=== PATIENT | female | born 1985 | race Native Hawaiian/Other Pacific Islander ===

== ENCOUNTER 2017-11-25 21:42 | Emergency (ER) | payer OTHER ==
[2017-11-25 22:41] VITALS: BP 131/88; PULSE 89; RESP 16; TEMP 98.9; O2SAT 100
--- NOTE | 2017-11-25 23:00 | ED PDOC ---
Upper Extremity Pain/Injury Time Seen by Provider: 11/25/17 22:58 Chief Complaint (Nursing): Finger,Hand,&Wrist Chief Complaint (Provider): hand injury History Per: Patient (32 y/o female here for evaluation of left hand injury that occurred after trip and fall. Patient states she broke fall with hand. Denies any head injury/LOC. IS right hand dominant.) Past Medical History Reviewed: Historical Data, Nursing Documentation, Vital Signs Vital Signs: Last Vital Signs Temp 98.9 F 11/25/17 22:38 Pulse 89 11/25/17 22:38 Resp 16 11/25/17 22:38 BP 131/88 11/25/17 22:38 Pulse Ox 100 11/25/17 22:38 - Surgical History Surgical History: Cholecystectomy - Family History Family History: States: No Known Family Hx - Home Medications Home Medications: Ambulatory Orders Medication Instructions Recorded Naproxen 1 tab PO Q12 PRN #14 tab 11/26/17 - Allergies Allergies/Adverse Reactions: Allergies Allergy/AdvReac Type Severity Reaction Status Date / Time No Known Allergies Allergy Verified 11/25/17 22:37 Review of Systems ROS Statement: Except As Marked, All Systems Reviewed And Found Negative Physical Exam - Reviewed Nursing Documentation Reviewed: Yes Vital Signs Reviewed: Yes - Physical Exam Appears: Positive for: Well, Non-toxic, No Acute Distress Head Exam: Positive for: ATRAUMATIC, NORMAL INSPECTION, NORMOCEPHALIC Skin: Positive for: Normal Color, Warm, DRY Eye Exam: Positive for: EOMI, Normal appearance, PERRL ENT: Positive for: Normal ENT Inspection Neck: Positive for: Normal, Painless ROM Cardiovascular/Chest: Positive for: Regular Rate, Rhythm Respiratory: Positive for: CNT, Normal Breath Sounds Gastrointestinal/Abdominal: Positive for: Normal Exam, Bowel Sounds, Soft Back: Positive for: Normal Inspection Extremity: Positive for: Normal ROM, Tenderness (tenderness left hand by base of fifth digiti/swelling noted.) Neurologic/Psych: Positive for: Alert, Oriented - ECG O2 Sat by Pulse Oximetry: 100 - Progress ED Course And Treament: Hand xry: no acute fx tylenol 975mg Disposition - Clinical Impression Clinical Impression: Hand contusion - Patient ED Disposition Is Patient to be Admitted: No - Disposition Referrals: FAMILY PROVIDER,NO [Primary Care Provider] - Elvis Agee MD [Medical Doctor] - Disposition: Routine/Home Disposition Time: 00:07 Condition: FAIR Prescriptions: Naproxen 1 tab PO Q12 PRN #14 tab PRN Reason: Pain, Moderate (4-7) Instructions: Contusion in Adults (DC) Forms: [facility] (Bhutanese), [facility] ED School/Work Excuse
--- NOTE | 2017-11-26 11:28 | RAD ---
PROCEDURE: Left Hand Radiographs. HISTORY: hand injury COMPARISON: None. FINDINGS: BONES: Cortical irregularity base of the 4th metacarpal diaphysis. Cannot rule out fracture although this may be artifact. . Additional radiographic evaluation is advised if clinically warranted. . JOINTS: Normal. No osteoarthritic changes. SOFT TISSUES: Normal. OTHER FINDINGS: None. IMPRESSION: Cortical irregularity base of the 4th metacarpal diaphysis. Please correlate clinically for possible fracture. Consider additional radiographic evaluation if warranted.
== END 2017-11-26 00:13 | disposition home or self-care (01) ==
LOC: H.ER 21:42
DX: S60.222A Contusion of left hand, initial encounter (principal); W19.XXXA Unspecified fall, initial encounter; Y92.89 Other specified places as the place of occurrence of the external cause

== ENCOUNTER 2017-11-26 18:01 | Emergency (ER) | payer OTHER ==
[2017-11-26 18:25] VITALS: BP 119/74; PULSE 91; RESP 18; TEMP 98.7; O2SAT 99
--- NOTE | 2017-11-26 20:46 | ED PDOC ---
Upper Extremity Pain/Injury Chief Complaint (Nursing): Upper Extremity Problem/Injury Chief Complaint (Provider): Fracture to right Hand History/Exam Limitations: no limitations Current Symptoms Are (Timing): Still Present Additional Complaint(s): 32 year old female who was asked to return to the ED after a fracture was noted on her Xray. Patient tripped and fell onto right hand causing injury. FAMILY PROVIDER,NO Past Medical History Reviewed: Historical Data, Nursing Documentation, Vital Signs Vital Signs: Last Vital Signs Temp 98.7 F 11/26/17 18:23 Pulse 91 H 11/26/17 18:23 Resp 18 11/26/17 18:23 BP 119/74 11/26/17 18:23 Pulse Ox 99 11/26/17 18:23 - Medical History PMH: No Chronic Diseases - Surgical History Surgical History: Cholecystectomy - Family History Family History: States: Unknown Family Hx - Social History Current smoker - smoking cessation education provided: Yes (Current Some Days Smoker) Ex-Smoker (has not smoked in the last 12 months): Yes Alcohol: None Drugs: Denies - Home Medications Home Medications: Ambulatory Orders Medication Instructions Recorded Naproxen 1 tab PO Q12 PRN #14 tab 11/26/17 oxyCODONE/Acetaminophen [Percocet 1 ea PO Q6 PRN #15 tab 11/26/17 5/325 mg Tab] - Allergies Allergies/Adverse Reactions: Allergies Allergy/AdvReac Type Severity Reaction Status Date / Time No Known Allergies Allergy Verified 11/25/17 22:37 Review of Systems Musculoskeletal: Positive for: Hand Pain, Other (Fracture to right hand) Physical Exam - Reviewed Nursing Documentation Reviewed: Yes Vital Signs Reviewed: Yes - Physical Exam Appears: Positive for: Non-toxic, No Acute Distress Skin: Positive for: Normal Color, Warm, Dry. Negative for: Rash Eye Exam: Positive for: Normal appearance, EOMI, PERRL Extremity: Positive for: Normal ROM (Pain to lateral aspect of hand). Negative for: Tenderness, Deformity, Swelling Neurologic/Psych: Positive for: Alert, Oriented - ECG O2 Sat by Pulse Oximetry: 99 (RA) Pulse Ox Interpretation: Normal Medical Decision Making Medical Decision Making: Initial Impression 32 y/o female presenting wit h fracture to gordon andrea cadena Initial Plan: * Reevaluation Ulnar Gutter splint placed in the ED. Documented by Gladis Berg acting as a scribe for Robe Irwin PA-C. All medical record entries made by the Scribe were at my direction and personally dictated by me. I have reviewed the chart and agree that the record accurately reflects my personal performance of the history, physical exam, medical decision making, and the department course for this patient. I have also personally directed, reviewed, and agree with the discharge instructions and disposition. Disposition - Clinical Impression Clinical Impression: Fracture of fourth metacarpal bone - Disposition Referrals: Elvis Agee MD [Medical Doctor] - Disposition: Routine/Home Disposition Time: 20:13 Condition: FAIR Prescriptions: oxyCODONE/Acetaminophen [Percocet 5/325 mg Tab] 1 ea PO Q6 PRN #15 tab PRN Reason: Pain, Severe (8-10) Instructions: Hand Fracture (ED) Forms: [facility] (Nepali), [facility] ED School/Work Excuse
== END 2017-11-26 20:48 | disposition home or self-care (01) ==
LOC: H.ER 18:01
DX: S62.344A Nondisplaced fracture of base of fourth metacarpal bone, right hand, initial encounter for closed fracture (principal); Y92.89 Other specified places as the place of occurrence of the external cause

== ENCOUNTER 2017-11-28 10:28 | Emergency (ER) | payer OTHER ==
[2017-11-28 10:46] VITALS: BP 129/86; PULSE 73; RESP 18; TEMP 98.3; O2SAT 99
[2017-11-28] MEDS ORDERED: Oxycodone/Acetaminophen 5/325 mg Tab PO ONE (11:54)
[2017-11-28] MEDS ORDERED: Oxycodone/Acetaminophen 5/325 mg Tab ONE (12:54)
--- NOTE | 2017-11-28 14:28 | ED PDOC ---
Upper Extremity Pain/Injury Time Seen by Provider: 11/28/17 11:37 Chief Complaint (Nursing): Upper Extremity Problem/Injury Chief Complaint (Provider): Upper extremity problem/injury History Per: Patient History/Exam Limitations: no limitations Onset/Duration Of Symptoms: Days (x2) Current Symptoms Are (Timing): Still Present Quality: "Pain" Additional Complaint(s): Nuno Carey is a 32 year old female, with no significant past medical history, who presents to the emergency department complaining of left hand and arm pain with swelling onset for x2 days. Patient reports this will be her 3rd visit in the ER. The first visit was on Nov 25 after she fell on left hand and sustained an injury, she was diagnosed with hand contusion and sent home. X- Ray was read for possible fracture on 4th metacarpal bone, patient was called back x2 days ago, an ulnar gutter splint was placed and she was given prescription for percocet and advised to follow up with Dr. Leal, orthopedist. Patient was unable to make an appointment due to codie care, and did not filled her prescriptions. Patient reports a worsening hand pain after ulnar gutter splint was placed. She denies any fever, chills or other medical complaints. PMD: None provided. Past Medical History Reviewed: Historical Data, Nursing Documentation, Vital Signs Vital Signs: Last Vital Signs Temp 98.3 F 11/28/17 10:42 Pulse 73 11/28/17 10:42 Resp 18 11/28/17 10:42 BP 129/86 11/28/17 10:42 Pulse Ox 99 11/28/17 10:42 - Medical History PMH: No Chronic Diseases - Surgical History Surgical History: Cholecystectomy - Family History Family History: States: Unknown Family Hx - Social History Current smoker - smoking cessation education provided: Yes (Current some days smoker) Alcohol: None Drugs: Denies - Home Medications Home Medications: Ambulatory Orders Medication Instructions Recorded Naproxen 1 tab PO Q12 PRN #14 tab 11/26/17 oxyCODONE/Acetaminophen [Percocet 1 ea PO Q6 PRN #15 tab 11/26/17 5/325 mg Tab] - Allergies Allergies/Adverse Reactions: Allergies Allergy/AdvReac Type Severity Reaction Status Date / Time No Known Allergies Allergy Verified 11/28/17 10:42 Review of Systems ROS Statement: Except As Marked, All Systems Reviewed And Found Negative Constitutional: Negative for: Fever, Chills Musculoskeletal: Positive for: Arm Pain (left ), Hand Pain (left) Physical Exam - Reviewed Nursing Documentation Reviewed: Yes Vital Signs Reviewed: Yes - Physical Exam Appears: Positive for: Non-toxic Head Exam: Positive for: ATRAUMATIC, NORMAL INSPECTION, NORMOCEPHALIC Skin: Positive for: Normal Color, Warm, Dry Eye Exam: Positive for: Normal appearance Neck: Positive for: Painless ROM Extremity: Positive for: Capillary Refill (left hand normal <2 seconds), Swelling (mild swelling of her 1st, 2nd, and 3rd fingers but no 4th, and 5th. ) . Negative for: Tenderness (The entire hand is soft, nontender, normal color), Deformity (hand) Neurologic/Psych: Positive for: Alert, Oriented. Negative for: Motor/Sensory Deficits - ECG O2 Sat by Pulse Oximetry: 99 (RA) Pulse Ox Interpretation: Normal Medical Decision Making Medical Decision Making: Initial Impression: 4th metacarpal fracture related pain. Initial Plan: --Fracture is non-displaced. Removed the gutter and pain exacerbation is most likely due to splint tightness. Will redo the ulnar gutter splint and pt will be directed to media monitor visit. 11/26/17 Hand X-Ray FINDINGS: BONES: Cortical irregularity base of the 4th metacarpal diaphysis. Cannot rule out fracture although this may be artifact. . Additional radiographic evaluation is advised if clinically warranted. . JOINTS: Normal. No osteoarthritic changes. SOFT TISSUES: Normal. OTHER FINDINGS: None. IMPRESSION: Cortical irregularity base of the 4th metacarpal diaphysis. Please correlate clinically for possible fracture. Consider additional radiographic evaluation if warranted. 12:51 --Splint properly done by electrical equipment technician Vini. --On reevaluation, neurovascularly intact post splint Scribe Attestation: Documented by David Bernard, acting as a scribe for Frank Hoyos MD Provider Scribe Attestation: All medical record entries made by the Scribe were at my direction and personally dictated by me. I have reviewed the chart and agree that the record accurately reflects my personal performance of the history, physical exam, medical decision making, and the department course for this patient. I have also personally directed, reviewed, and agree with the discharge instructions and disposition. Disposition - Clinical Impression Clinical Impression: Fracture of hand, Closed fracture of hand - Disposition Referrals: Elvis Agee MD [Medical Doctor] - Condition: GOOD Additional Instructions: You will be called in 2-3 days for referral. Follow up with hand specialist within 1 week. Instructions: Finger Fracture (ED) Forms: [facility] (Haitian)
== END 2017-11-28 14:07 | disposition home or self-care (01) ==
LOC: H.ER 10:28
DX: Z47.89 Encounter for other orthopedic aftercare (principal)

== ENCOUNTER 2018-01-20 13:02 | Emergency (ER) | payer SELFPAY ==
[2018-01-20 13:34] VITALS: BP 146/87; PULSE 86; RESP 16; TEMP 98.8; O2SAT 99
--- NOTE | 2018-01-20 14:06 | ED PDOC ---
HPI: General Adult Time Seen by Provider: 01/20/18 13:57 Chief Complaint (Nursing): Female Genitourinary Chief Complaint (Provider): "I want to see how far along I am" History Per: Patient History/Exam Limitations: no limitations Onset/Duration Of Symptoms: Days Have you had recent travel within the past 21 days to any of the following countries: [place], [place], [place] or [place]?: No Current Symptoms Are (Timing): Still Present Additional Complaint(s): LMP 12/04/2017 Pt states she took 2 tests at home that were positive. Pt states that does not know how far along her is. Pt states she has not seen and POT ROOM TAPPER in many years. Pt states she is taking prenatals. PT states she is feeling nauseous. Pt states she felt some cramping 6 days ago. Denies any current complaints. Past Medical History Reviewed: Historical Data, Nursing Documentation, Vital Signs Vital Signs: Last Vital Signs Temp 98.8 F 01/20/18 13:30 Pulse 86 01/20/18 13:30 Resp 16 01/20/18 13:30 BP 146/87 01/20/18 13:30 Pulse Ox 99 01/20/18 14:11 - Medical History PMH: No Chronic Diseases - Surgical History Surgical History: Cholecystectomy - Family History Family History: States: Unknown Family Hx - Living Arrangements Living Arrangements: With Family - Social History Current smoker - smoking cessation education provided: No - Home Medications Home Medications: Ambulatory Orders Medication Instructions Recorded Naproxen 1 tab PO Q12 PRN #14 tab 11/26/17 oxyCODONE/Acetaminophen [Percocet 1 ea PO Q6 PRN #15 tab 11/26/17 5/325 mg Tab] Doxylamine/Pyridoxine HCl (B6) 1 each PO QPM #30 tablet. 01/20/18 [Diclevandana Castrejon 10-10 mg Tablet] Nitrofurantoin Macrocrystals 100 mg PO BID #10 cap 01/20/18 [Macrobid] - Allergies Allergies/Adverse Reactions: Allergies Allergy/AdvReac Type Severity Reaction Status Date / Time No Known Allergies Allergy Verified 11/28/17 10:42 Review of Systems ROS Statement: Except As Marked, All Systems Reviewed And Found Negative Constitutional: Negative for: Fever, Chills Gastrointestinal: Positive for: Nausea. Negative for: Abdominal Pain Genitourinary Female: Negative for: Vaginal Bleeding, Pelvic Pain Physical Exam - Reviewed Nursing Documentation Reviewed: Yes Vital Signs Reviewed: Yes - Physical Exam Appears: Positive for: Well, Non-toxic, No Acute Distress Head Exam: Positive for: ATRAUMATIC, NORMAL INSPECTION, NORMOCEPHALIC Skin: Positive for: Normal Color, Warm, DRY Eye Exam: Positive for: Normal appearance ENT: Positive for: Normal ENT Inspection Neck: Positive for: Normal, Painless ROM Cardiovascular/Chest: Positive for: Regular Rate, Rhythm Respiratory: Positive for: CNT, Normal Breath Sounds Gastrointestinal/Abdominal: Positive for: Normal Exam, Soft. Negative for: Tenderness Back: Positive for: Normal Inspection Extremity: Positive for: Normal ROM Neurologic/Psych: Positive for: Alert, Oriented - ECG O2 Sat by Pulse Oximetry: 99 Medical Decision Making Medical Decision Making: (+) leuks Disposition - Clinical Impression Clinical Impression: UTI in , Nausea - Patient ED Disposition Is Patient to be Admitted: No Counseled Patient/Family Regarding: Diagnosis, Need For Followup, Rx Given - Disposition Referrals: Niels Carrillo DO [Staff Provider] - [facility]] Disposition: Routine/Home Disposition Time: 15:00 Condition: GOOD Prescriptions: Doxylamine/Pyridoxine HCl (B6) [Oh Castrejon 10-10 mg Tablet] 1 each PO QPM #30 tablet. Nitrofurantoin Macrocrystals [Macrobid] 100 mg PO BID #10 cap Instructions: Urinary Tract Infection, Adult (DC) Forms: [facility] (Lao)
[2018-01-20 14:51] LABS: SQUAMOUS EPITHIAL 2 /hpf (0-5); URINE AMORPHOUS SEDIMENT RARE /ul (<OCC); URINE BILIRUBIN NEGATIVE (NEGATIVE); URINE BLOOD NEGATIVE (NEGATIVE); URINE CLARITY SLIGHTY-CLOUDY (Clear); URINE COLOR YELLOW (YELLOW); URINE GLUCOSE (UA) NEG (Normal); URINE LEUKOCYTE ESTERASE TRACE Leu/uL (Negative); URINE PROTEIN NEGATIVE (NEGATIVE); URINE UROBILINOGEN 0.2-1.0 mg/dL (0.2-1.0)
== END 2018-01-20 15:13 | disposition home or self-care (01) ==
LOC: H.ER 13:02
DX: O23.40 Unspecified infection of urinary tract in pregnancy, unspecified trimester (principal)

== ENCOUNTER 2018-02-11 08:31 | Emergency (ER) | payer SELFPAY ==
[2018-02-11 08:36] VITALS: BMI 39.2
[2018-02-11] MEDS ORDERED: Sodium Chloride 0.9% 1,000 ML IV STA (08:51)
--- NOTE | 2018-02-11 08:53 | ED PDOC ---
HPI: Female Pain Time Seen by Provider: 02/11/18 08:43 Chief Complaint (Nursing): Female Genitourinary Chief Complaint (Provider): Vaginal bleeding History Per: Patient History/Exam Limitations: no limitations Onset/Duration Of Symptoms: Days (today) Additional Complaint(s): Pt. with spotting that started today. Mild pelvic cramping. No back pain, dyspnea, chest pain, fever, cough, dysuria. Is 9 wks preg. Past Medical History Reviewed: Nursing Documentation, Vital Signs Vital Signs: Last Vital Signs Temp 98.3 F 02/11/18 08:36 Pulse 75 02/11/18 08:36 Resp 17 02/11/18 08:36 BP 146/90 02/11/18 08:36 Pulse Ox 99 02/11/18 08:36 - Medical History PMH: No Chronic Diseases - Surgical History Surgical History: Cholecystectomy - Family History Family History: States: Unknown Family Hx - Home Medications Home Medications: Ambulatory Orders Medication Instructions Recorded Naproxen 1 tab PO Q12 PRN #14 tab 11/26/17 oxyCODONE/Acetaminophen [Percocet 1 ea PO Q6 PRN #15 tab 11/26/17 5/325 mg Tab] Doxylamine/Pyridoxine HCl (B6) 1 each PO QPM #30 tablet. 01/20/18 [Oh Castrejon 10-10 mg Tablet] Nitrofurantoin Macrocrystals 100 mg PO BID #10 cap 01/20/18 [Macrobid] - Allergies Allergies/Adverse Reactions: Allergies Allergy/AdvReac Type Severity Reaction Status Date / Time No Known Allergies Allergy Verified 11/28/17 10:42 Review of Systems ROS Statement: Except As Marked, All Systems Reviewed And Found Negative Genitourinary Female: Positive for: Vaginal Bleeding, Pelvic Pain Physical Exam - Reviewed Nursing Documentation Reviewed: Yes Vital Signs Reviewed: Yes - Physical Exam Appears: Positive for: Non-toxic, No Acute Distress Head Exam: Positive for: ATRAUMATIC, NORMAL INSPECTION, NORMOCEPHALIC Skin: Positive for: Normal Color, Warm, DRY Eye Exam: Positive for: EOMI, Normal appearance, PERRL ENT: Positive for: Normal ENT Inspection Neck: Positive for: Normal, Painless ROM Cardiovascular/Chest: Positive for: Regular Rate, Rhythm Respiratory: Positive for: CNT, Normal Breath Sounds Gastrointestinal/Abdominal: Positive for: Normal Exam, Soft. Negative for: Tenderness Back: Positive for: Normal Inspection. Negative for: L CVA Tenderness, R CVA Tenderness Extremity: Positive for: Normal ROM Neurologic/Psych: Positive for: Alert, Oriented - Laboratory Results Result Diagrams: 02/11/18 08:53 02/11/18 08:53 - ECG O2 Sat by Pulse Oximetry: 99 - Progress ED Course And Treament: 1224: SLIUP. Fu with obgyn. Abdon barker. Pain free. AAOx3. Disposition - Clinical Impression Clinical Impression: Threatened - Patient ED Disposition Is Patient to be Admitted: No Counseled Patient/Family Regarding: Studies Performed, Diagnosis, Need For Followup - Disposition [facility] - [facility]/18 Disposition: Routine/Home Disposition Time: 12:25 Condition: STABLE Additional Instructions: Return if not better in 3 days. Instructions: Threatened Miscarriage Forms: [facility] (Syriac), [facility] ED School/Work Excuse
[2018-02-11 09:12] LABS: BASO % 0.5 % (0.0-2.0); EOS # 0.1 K/uL (0.0-0.7); EOS % 0.9 % (0.0-4.0); HEMOGLOBIN 13.8 g/dL (12.0-16.0); LYMPH # 1.8 K/uL (1.0-4.3); MEAN CELL VOLUME 93.1 fl (81.0-99.0); MEAN CORPUSCULAR HGB CONC 34.4 g/dL (33.0-37.0); MEAN PLATELET VOLUME 9.6 fl (7.2-11.7); MONO # 0.6 K/uL (0.0-0.8); MONO % 7.1 % (0.0-10.0); NEUT # 6.5 K/uL (1.8-7.0); NEUT % 71.5 % (50.0-75.0); NRBC % 0.1 % (0.0-0.0); RBC 4.31 Mil/uL (3.80-5.20); RED CELL DISTRIBUTION WIDTH 13.6 % (11.5-14.5); WHITE BLOOD COUNT 9.1 K/uL (4.8-10.8)
[2018-02-11 09:25] LABS: CALCIUM 9.5 mg/dL (8.4-10.2); GFR AFRICAN-AMERICAN > 60; GFR NON-AFRICAN AMERICAN > 60
[2018-02-11 09:26] LABS: ALB/GLOB RATIO 1.1 (1.0-2.1); ALBUMIN 4.1 g/dL (3.5-5.0); ALT/SGPT 26 U/L (9-52); AST/SGOT 50 U/L (14-36); BLOOD UREA NITROGEN 10 mg/dl (7-17)
--- NOTE | 2018-02-11 10:29 | US ---
PROCEDURE: OB Pelvic Ultrasound HISTORY: preg and pain COMPARISON: None available. TECHNIQUE: Transvaginal pelvic ultrasound was performed. FINDINGS: UTERUS: Single Live intrauterine gestation. CRL measures 1.61 cm equivalent to 8 weeks and 0 day gestatioin Gestational sac diameter measures 3.22 cm equivalent to 8 weeks and 2 days gestation age (Ultrasound estimated): Date of delivery (Ultrasound estimated) : 09/22/2018 Heart rate: 164 bpm. Ginger-gestational hemorrhage: None. Uterus .8 x 5.7 x 6.4 cm. Normal in size and appearance. No fibroid or other mass lesion seen. CERVIX: Long and closed. No cervical abnormality seen. RIGHT OVARY: Measures 3.7 x 1.4 x 4.1 cm. No mass. Normal flow. LEFT OVARY: Measures 2.3 x 2.0 x 1.3 cm. No mass. Normal flow. FREE FLUID: None. OTHER FINDINGS: None. IMPRESSION: Single live intrauterine gestation with mean gestational age of 8 weeks and 2 days. Estimated date of delivery by ultrasound is 09/22/2018.
[2018-02-11 13:05] VITALS: BP 128/78; PULSE 80; RESP 20; TEMP 97; O2SAT 98
== END 2018-02-11 13:05 | disposition home or self-care (01) ==
LOC: H.ER 08:31
DX: O20.0 Threatened abortion (principal); Z3A.09 9 weeks gestation of pregnancy
CPT/HCPCS: 76817; 80053; 81025; 84702; 85025; 86850; 86900; 99282; J7040

== ENCOUNTER 2018-09-01 22:09 | Emergency (ER) | payer SELFPAY ==
[2018-07-23 17:30] VITALS: BMI 39.2
--- NOTE | 2018-09-01 23:07 | OBHP ---
Datetime: 09/01/2018 23:02 IP Adm Impression: Term, intrauterine ; No Active Labor IP Admit Plan: Observation/Evaluation; Discharge home Admit Comment, IP Provider: Patient is a 33-year-old 2 para 1 estimated due date 09/23/2018 estimated gestational age 36 weeks and 6/7 days patient presents to labor and delivery complaining of uterine contractions vaginal discharge. Patient reports good movement no vaginal bleeding no l eakage of fluid. Patient denies any problems dry her . Past medical history none Medications vitamins Past surgical history gallbladder removed No known drug allergies Social history denies alcohol tobacco use Review of systems patient denies headache chest pain shortness of breath palpitations nausea vomit ing diarrhea heat or cold intolerance easy bruisability musculoskeletal or neurological complaints Vital signs stable afebrile Physical exam see notes Intrauterine at 36+ weeks Uterine contractions cervical exam unchanged from off extended exam 1 week ago External monitor Observation Probable discharge home with labor precautions Pelvic Type - PN: Adequate Extremities - PN: Normal Abdomen - PN: Normal Back - PN: Normal Breast - PN: Normal Lungs - PN: Normal Heart - PN: Normal Thyroid - PN: Normal Neurologic - PN: Normal HEENT - PN: Normal General - PN: Normal Weight - Estimated: 7 Presentation-Admit: Vertex FHR - Baseline A Provider: 145 Membranes, Provider: Intact Gestation - Est Wks by US: 366/7 Pool Provider: Negative Vital Signs Provider: Reviewed IP Chief Complaint: Uterine contractions NICHD Variability Prov Fetus A: Moderate 6-25bpm NICHD Accel Fetus A IP Provider: 15X15 FHR Category Provider Fetus A: Category I NICHD Decel Fetus A IP Provider: None Dilatation, Provider: 2 Effacement, Provider: 50 Station, Provider: -2 Genitourinary Exam: Normal DTRs - PN: Normal
[2018-09-02 04:12] VITALS: BP 137/83; PULSE 83; TEMP 98.6
== END 2018-09-01 23:27 | disposition home or self-care (01) ==
LOC: H.EROB2 22:09
DX: O26.93 Pregnancy related conditions, unspecified, third trimester (principal); R10.2 Pelvic and perineal pain; Z3A.36 36 weeks gestation of pregnancy

== ENCOUNTER 2018-09-09 13:24 | Emergency (ER) | payer SELFPAY ==
[2018-09-09 14:09] VITALS: BMI 38.5
[2018-09-09 14:42] LABS: SQUAMOUS EPITHIAL 16 /hpf (0-5); URINE BACTERIA RARE (<OCC); URINE BILIRUBIN NEGATIVE (NEGATIVE); URINE CLARITY CLOUDY (Clear); URINE COLOR YELLOW (YELLOW); URINE GLUCOSE (UA) NEG (Normal); URINE LEUKOCYTE ESTERASE LARGE Leu/uL (Negative); URINE PROTEIN NEGATIVE (NEGATIVE); URINE UROBILINOGEN 0.2-1.0 mg/dL (0.2-1.0)
[2018-09-09 14:45] LABS: URINE BLOOD SMALL (NEGATIVE)
--- NOTE | 2018-09-11 07:26 | OBHP ---
Datetime: 09/09/2018 14:14 IP Adm Impression: Term, intrauterine ; No Active Labor IP Admit Plan: Observation/Evaluation; Discharge home Admit Comment, IP Provider: Patient is a 33-year-old, , GA: 38, OVIDIO 09/23/2018, presents to labo r and delivery complaining of uterine contractions vaginal discharge. Patient reports good move ment no vaginal bleeding no leakage of fluid. Patient denies any problems dry her . Past medical history none Medications vitamins Past surgical history gallbladder removed No known drug allergies Social history denies alcohol tobacco use Review of systems patient denies headache chest pain shortness of breath palpitations nausea vomit ing diarrhea heat or cold intolerance easy bruisability musculoskeletal or neurological complaints Vital signs stable afebrile Physical exam see notes A/P: 33-year-old, , GA: 38, OVIDIO 09/23/2018, here for CTX Uterine contractions cervical exam unchanged from off extended exam 1 week ago External monitor Observation Reexamination -Case discussed with Dr. Sotelo --- Dr. Tatum, PGY-II Reexam after 1.5hours Exam: Cervix 3cm, 50%, -2 Urine: + Leuk START macrobid Case discussed and patient examined with Dr. Sotelo --Dr. Irwin, PGY-II Patient examined 1.5 hours after Exam no change improved pain patient agrees with discharge plan Macrobid 100 BID for 5 days, Rx given follow up to the clinic tommorrow ER precatuions discussed -Case discussed with Dr. Sotelo --- Dr. Irwin, PGY-II. Attending Note: Patient was seen and examined with the resident and I agree with the above assessm ent. Pelvic Type - PN: Adequate Extremities - PN: Normal Abdomen - PN: Normal Back - PN: Normal Breast - PN: Normal Lungs - PN: Normal Heart - PN: Normal Thyroid - PN: Normal Neurologic - PN: Normal HEENT - PN: Normal General - PN: Normal FHR - Baseline A Provider: 130 EGA AdmitDate IP: 38.0 Vital Signs Provider: Reviewed IP Chief Complaint: Uterine contractions; Maternal discomfort NICHD Variability Prov Fetus A: Moderate 6-25bpm NICHD Accel Fetus A IP Provider: 15X15 NICHD Decel Fetus A IP Provider: None Dilatation, Provider: 2 Effacement, Provider: 50 Station, Provider: -2 Genitourinary Exam: Normal DTRs - PN: Normal (Annotations: Data stored by CPN on behalf of user)
[2018-09-11 11:24] VITALS: BP 123/81; PULSE 80; RESP 18; TEMP 97.9; O2SAT 100
== END 2018-09-09 16:45 | disposition home or self-care (01) ==
LOC: H.EROB2 13:24
DX: O26.93 Pregnancy related conditions, unspecified, third trimester (principal); R10.2 Pelvic and perineal pain; Z3A.38 38 weeks gestation of pregnancy

== ENCOUNTER 2018-09-25 09:27 | Inpatient (IN) | payer MEDICAID, SELFPAY ==
[2018-09-25 09:40] VITALS: BMI 39.9
[2018-09-25] MEDS ORDERED: Oxytocin 30 UNIT 30 UNITS/500 ML BAG IV ONE (10:23)
[2018-09-25] MEDS ORDERED: Lactated Ringer's 1,000 ML IV SCH ×2 (10:30→18:30)
[2018-09-25] MEDS ORDERED: OXYTOCIN/0.9 % NS 20 UNIT/1,000 ML BAG IV SCH (10:30)
[2018-09-25] MEDS ORDERED: Oxytocin 30 units/LR 500ML 30 UNITS/500 ML BAG IV ONE ×2 (10:38→10:39)
[2018-09-25] MEDS: Lactated Ringer's 1,000 ML IV ONE ×2 (12:30→13:45)
[2018-09-25 12:45] LABS: BASO % 0.3 % (0.0-2.0); EOS % 0.6 % (0.0-4.0); LYMPH # 1.2 K/uL (1.0-4.3); LYMPH % 17.7 % (20.0-40.0); MEAN CELL VOLUME 97.2 fl (81.0-99.0); MEAN CORPUSCULAR HEMOGLOBIN 31.9 pg (27.0-31.0); MEAN CORPUSCULAR HGB CONC 32.8 g/dL (33.0-37.0); MEAN PLATELET VOLUME 9.1 fl (7.2-11.7); MONO # 0.3 K/uL (0.0-0.8); MONO % 4.6 % (0.0-10.0); NEUT # 5.4 K/uL (1.8-7.0); NEUT % 76.8 % (50.0-75.0); NRBC % 0.1 % (0.0-0.0); RBC 3.77 Mil/uL (3.80-5.20); RED CELL DISTRIBUTION WIDTH 15.5 % (11.5-14.5)
--- NOTE | 2018-09-25 14:37 | OBADHP ---
Datetime: 09/25/2018 10:31 IP Chief Complaint Other: oligohydromnios Pelvic Type - PN: Adequate Extremities - PN: Normal Abdomen - PN: Normal Back - PN: Normal Breast - PN: Not Done Lungs - PN: Normal Heart - PN: Normal Thyroid - PN: Normal Neurologic - PN: Normal HEENT - PN: Normal General - PN: Normal FHR - Baseline A Provider: 150 Gestation - Est Wks by US: 39.4 Pool Provider: Negative Nitrazine Provider: Negative Ferning Provider: Negative IP Chief Complaint: Other Effacement, Provider: 50 Station, Provider: -2 Genitourinary Exam: Normal DTRs - PN: Normal EGA AdmitDate IP: 39.4 IP Admit Plan: Admit to unit; Initiate labor induction protocol Datetime: 09/25/2018 10:09 Admit Comment, IP Provider: Pt is a 39.4 wk was sent from Clinic due to + for Oligohydromnios. Pt have no other complain she denies contraction, vaginal bleed, water gush or any other symptoms of labor. Pt does complain of mild headache and some nausea that she had today in morning otherwise she franco es fever chills, vomiting, confusion dizzyness, chest pain, sob, abd pain diarrhea, constipation dysu jayant, polyuria. ROS : all negative except mentioned in HPI Allergy none PCP: [facility] Med: [facility] PMH: none PSH cholesystectomy OBGYN: 1 NVD, no STD no complication in past PFH: non contribuitary SOcial used to smoke in past stopped 3 mo before Assessment and plan Pt is a 39.4 wk was sent from Clinic due to + for Oligohydromnios. Will be admitted for admis patrice Pt is with no acute distress. PE cervix 3 cm 50% -2 Murray score 5 Plan Will admit to floor for Induction of labor Tim Rao PGY1 OB Hospitalist on-call. With PGY1, I saw and examined this patinet. Early labor. Explained condi ton, labor, pain managment, augmentation, delivey and care. She wants to eat and then augm ent labor MAHNDO Presentation-Admit: Vertex Comments, ACOG Physical Exam: Pt is not in acute distress heart s1 s2 heard no extra heart sound lung clear abd BS+ non tender Pelvic 3cm 50% -2 IP Hx Assessment: The History has been Reviewed and is Current Vital Signs Provider: Reviewed; Within Normal Limits NICHD Variability Prov Fetus A: Moderate 6-25bpm NICHD Accel Fetus A IP Provider: [id number] FHR Category Provider Fetus A: Category I Dilatation, Provider: 3 IP Adm Impression: Term, intrauterine ; No Active Labor; Intact Membranes Datetime: 09/09/2018 14:14 NICHD Decel Fetus A IP Provider: None Datetime: 09/01/2018 23:02 Weight - Estimated: 7 Membranes, Provider: Intact
[2018-09-25] MEDS ORDERED: Fentanyl/Bupivacaine HCl 250 ML EPI ONE (18:26)
--- NOTE | 2018-09-25 20:02 | OBPN ---
Datetime: 09/25/2018 19:55 IP Progress Impression: Normal progression of labor; Reassuring heart rate IP Informed Consent Obtain: Vaginal Delivery; Risks, Benefits and Alternatives Discussed IP Progress Plan: Augmentation; Anticipate Vaginal Delivery Pool Provider: Negative Membranes, Provider: Intact Contraction Comments Provider: 2-4m FHR - Baseline A Provider: 150 IP Fetus A Comments: one variable decel noted Presentation-Admit: Vertex IP Progress Note Comment: Notified that shewas 4-5cm at 19:00pm. She had rec'd epidural for pain man agement Latent phase of labor PLAN: Continue Pitocin augmentation - currently at 2miu/h NICHD Accel Fetus A IP Provider: 15X15 NICHD Variability Prov Fetus A: Moderate 6-25bpm Dilatation, Provider: 4 Effacement, Provider: 50 Station, Provider: -2 Datetime: 09/25/2018 10:31 Nitrazine Provider: Negative Ferning Provider: Negative Gestation - Est Wks by US: 39.4 Datetime: 09/25/2018 10:09 Vital Signs Provider: Reviewed; Within Normal Limits FHR Category Provider Fetus A: Category I Datetime: 09/09/2018 14:14 NICHD Decel Fetus A IP Provider: None Datetime: 09/01/2018 23:02 Weight - Estimated: 7
--- NOTE | 2018-09-26 00:33 | OBPN ---
Datetime: 09/25/2018 23:55 IP Progress Impression: Normal progression of labor; Reassuring heart rate IP Progress Plan: Augmentation; Anticipate Vaginal Delivery Contraction Comments Provider: 2-5m FHR - Baseline A Provider: 140 Presentation-Admit: Vertex IP Progress Note Comment: Notified that CTX were q1-2m (hypersystole). Pitocin was decreased to 2mi u/h at 23:00pm. She feels fine. No pain Latent phase of labor PLAN: Continue Pitocin augmentation / increase as per protocol NICHD Accel Fetus A IP Provider: 15X15 FHR Category Provider Fetus A: Category I NICHD Variability Prov Fetus A: Moderate 6-25bpm Dilatation, Provider: 4-5 Effacement, Provider: 80 Station, Provider: -2 NICHD Decel Fetus A IP Provider: None
[2018-09-26] MEDS ORDERED: Oxytocin 30 UNIT 30 UNITS/500 ML BAG IV ONE (03:33)
[2018-09-26] MEDS ORDERED: Benzocaine/Menthol SPRAY TOP PRN ×2 (03:33→04:59)
[2018-09-26] MEDS ORDERED: OXYTOCIN/0.9 % NS 20 UNIT/1,000 ML BAG IV ONE (03:33)
[2018-09-26] MEDS ORDERED: Oxycodone/Acetaminophen 5/325 mg Tab PO PRN ×2 (04:02→04:59)
[2018-09-26 11:41] LABS: BASO % 0.3 % (0.0-2.0); EOS % 0.3 % (0.0-4.0); HEMOGLOBIN 11.5 g/dL (12.0-16.0); LYMPH # 1.4 K/uL (1.0-4.3); LYMPH % 11.4 % (20.0-40.0); MEAN CELL VOLUME 96.2 fl (81.0-99.0); MEAN CORPUSCULAR HEMOGLOBIN 31.8 pg (27.0-31.0); MONO # 0.9 K/uL (0.0-0.8); MONO % 6.8 % (0.0-10.0); NEUT # 10.2 K/uL (1.8-7.0); NEUT % 81.2 % (50.0-75.0); RBC 3.62 Mil/uL (3.80-5.20); RED CELL DISTRIBUTION WIDTH 14.6 % (11.5-14.5); WHITE BLOOD COUNT 12.6 K/uL (4.8-10.8)
[2018-09-27 08:34] VITALS: BP 131/80; PULSE 72; RESP 20; TEMP 97.8
--- NOTE | 2018-09-27 10:25 | OBPPN ---
Datetime: 09/27/2018 06:09 PP Pain Prov: Within normal limits PP Nausea Prov: Denies PP Flatus Prov: Yes PP Heart Prov: Normal PP Lungs Prov: Normal PP Abdomen/Uterus Prov: Normal PP Lochia Prov: Normal PP Extremities Prov: Normal PP C/S Incision Prov: Normal PP Progress Prov: Normal PP Comments Phys Exam Prov: see progress note PP Impression Prov: Normal progression PP Plan Prov: Continue present management PP Progress Note Prov: S: 33 y/o s/p on 09/26/18. Patient is seen and examined this deja gonzalez, had an uneventful overnight. Patient c/o occasional mild pelvic pain that is controlled with medi cation. Pt is getting OOB w/o dizziness and is tolerating regular diet w/o N/V. Patient reports lochi a is like menses in volume, +flatus, voiding well. w/o difficulties. Denies WATSON, chest p ain, blurred vision, SOB, fever, or calf pain. O: VS WNL GEN: Sitting comfortably in bed, NAD HEENT: NCAT LUNGS: CTA, no wheezing CVS: RRR, S1, S2 present normal, no murmurs. ABD: uterus firm at umbilical level EXT: LE edema +1, Ori's negative A/P 33 y/o s/p , with normal progression, patient is today on her PPD1. -Regular diet -Encourage ambulation -Encourage -PNV 1 tab PO daily -Ibuprofen 600mg 1 tab Q6h prn for mild-mod pain -D/C planning Suellen Dan MD PGY1 Attending addendum: I saw and examined the patient at bedside this morning. I reviewed the resident note above and agr ee with findings and management. Patient to be DC home today. Bambi Calvillo MD Vital Signs Provider PP: Reviewed; Within Normal Limits
--- NOTE | 2018-09-27 10:28 | OBDCSUM ---
Datetime: 09/27/2018 10:00 Discharged to, Provider: Home Follow up at, Provider: Dr. Ibarra Disch Instr Activity: Normal activity; May be up to bathroom; May be up for meals; May Shower Disch Instr Diet: Regular Discharge Diet restrict Prov: none Discharge Instructions, Provider: Routine instructions given Discharge Time: 09/27/2018 10:25 Follow up in weeks, Provider: 4-6wks Disch Referrals: None Contraception discussed, Prov: Yes Disch Activity Restrictions: No exercising; No lifting; No driving; Minimize walking; Minimize stair -climbing; No sexual activity; Nothing in vagina - [place], tampons, douche Discharge Comment, Provider: Attending addendum: I saw and examined the patient at bedside this morning. I reviewed the resident note above and agr ee with findings and management. Patient to be DC home today. Bambi Calvillo MD Contraception after Delivery: Undecided
[2018-09-27 18:54] VITALS: O2SAT 98
== END 2018-09-27 13:45 | disposition home or self-care (01) | DRG 560 ==
LOC: H.EROB2 09:27 → H.L&D 10:22 → H.OB/GYN 09-26 05:30
PROVIDERS: ADMIT Obstetrics & Gynecology; ATTEND Obstetrics & Gynecology
PROC: 4A1HXCZ Monitoring of Products of Conception, Cardiac Rate, External Approach (ICD-10-PCS; 2018-09-25)
PROC: 10E0XZZ Delivery of Products of Conception, External Approach (ICD-10-PCS; principal; 2018-09-26)
DX: O76 Abnormality in fetal heart rate and rhythm complicating labor and delivery (principal); O41.03X0 Oligohydramnios, third trimester, not applicable or unspecified; O77.0 Labor and delivery complicated by meconium in amniotic fluid; Z37.0 Single live birth; Z3A.39 39 weeks gestation of pregnancy; O66.0 Obstructed labor due to shoulder dystocia; O69.81X0 Labor and delivery complicated by cord around neck, without compression, not applicable or unspecified